=== PATIENT | male | born 1985 | race Caucasian/White ===

== ENCOUNTER → 2021-12-10 | Outpatient (CLI) | payer OTHER ==
--- NOTE | 2021-12-10 19:15 | Diagnostic Imaging Report ---
PROCEDURE: CT abdomen and pelvis without contrast. TECHNIQUE: Multiple contiguous axial images were obtained through the abdomen and pelvis without the use of intravenous contrast. Auto Exposure Controls were utilized during the CT exam to meet ALARA standards for radiation dose reduction. INDICATION: One month history of difficulty with urination and colic-like pain. COMPARISON: No priors. FINDINGS: The unopacified urinary bladder appeared normal, its volume normal. No wall thickening or perivesical edema. The unobstructed kidneys are normal. No radiopaque stone. No hydroureteronephrosis. No perinephric or periureteric edema or stranding. The gallbladder is contracted. The liver and bile ducts are normal. The spleen, adrenals, and pancreas are negative. There is no small or large bowel obstruction. The appendix normal. There is no diverticulitis. No small or large bowel obstruction. No ascites, abscess, hematoma, or acute fluid collection. The lung bases and bony structures are unremarkable. IMPRESSION: Normal noncontrasted CT abdomen and pelvis. Dictated by: Dictated on workstation # [id number]
== END ==
LOC: RAD 14:22
PROVIDERS: ATTEND Nurse Practitioner Family
DX: N40.1 Benign prostatic hyperplasia with lower urinary tract symptoms (principal); I10 Essential (primary) hypertension; R10.83 Colic; R39.15 Urgency of urination; R39.11 Hesitancy of micturition; R35.0 Frequency of micturition
CPT/HCPCS: 74176